=== PATIENT | female | born 1965 | race Caucasian/White ===

== ENCOUNTER → 2017-05-20 | Outpatient (REF) | payer BC ==
[~2017-05-20] MED LIST: CITA20TA4 PO; PANT40TA2 PO; XARE20TA PO
== END ==
LOC: M LAB REF 10:41
PROVIDERS: ATTEND Nurse Practitioner Family
DX: E07.9 Disorder of thyroid, unspecified (principal); R00.9 Unspecified abnormalities of heart beat

== ENCOUNTER → 2018-08-02 | Outpatient (REF) | payer BC ==
[~2018-08-02] MED LIST changes: -PANT40TA2 PO; +PANT40TA3 PO
[2018-08-02 13:15] LABS: INFLUENZA A AMPLIFICATION NEGATIVE (NEGATIVE); INFLUENZA B AMPLIFICATION NEGATIVE (NEGATIVE)
== END ==
LOC: M LAB REF 11:59
PROVIDERS: ATTEND Nurse Practitioner Family
DX: R05 Cough (principal)

== ENCOUNTER → 2020-09-12 | Outpatient (REF) | payer BC ==
[~2020-09-12] MED LIST changes: -CITA20TA4 PO; +CITA20TA6 PO; +PANT40TA29 PO; -PANT40TA3 PO
== END ==
LOC: M LAB REF 13:40
PROVIDERS: ATTEND Physician Assistant
DX: B07.9 Viral wart, unspecified (principal)